=== PATIENT | female | born 1960 | race Caucasian/White ===

== ENCOUNTER 2016-07-21 09:47 | Emergency (ER) | payer BC ==
[~2016-07-21] VITALS: Ht 172.7 cm; Wt 86.2 kg
[2016-07-21 09:51] VITALS: BP 167/83
[2016-07-21] MEDS ORDERED: LIDOCAINE/EPI/TETRACAINE TOPICAL GEL 3 ML. TP ONE (10:00)
[2016-07-21] MEDS ORDERED: DIPHTH,PERTUSS(ACELL),TET TOX 0.5 ML DISP.SYRIN. VAX IM ONE (10:00)
--- NOTE | 2016-07-21 10:13 | PHYS DOC ---
Past History Past Medical History: Anxiety, Depression, Hypertension Past Surgical History: Cholecystectomy, Other Alcohol Use: Occasionally Drug Use: None Adult General Chief Complaint Chief Complaint: MECHANICAL FALL HPI HPI Patient is a 55-year-old female who presents ambulatory to the emergency department with injuries from a fall. The patient tripped over a uneven section in the sidewalk outside of her hotel this morning at about 7 AM. She landed face forward, struck her head, her glasses broke and the metal piece of her glasses caused a laceration to the left lateral eyebrow, she also has an abrasion on the left hand, both of her knees are bruised and her right knee is painful, and she has a abrasion on her right great toe. She denies loss of consciousness. After this happened, she took 2 Aleve and 2 Tylenol. She has not had a headache or nausea or vomiting. She had some coffee and a granola bar afterward. Currently her main complaint is pain is the right knee and her concern is also the laceration on the left lateral eyebrow. The patient's sister , who is a physician, cleaned and Steri-Stripped the left eyebrow and also cleaned and bandaged the left hand abrasion. Last tetanus unknown Patient denies taking blood thinners. Review of Systems Review of Systems Cardiovascular: Denies chest pain Musculoskeletal: Denies back pain or neck pain Integument: As in history of present illness Neurologic: Denies headache, focal weakness or sensory changes [] Current Medications Current Medications Current Medications Medications (Trade) Dose Ordered Sig/Josh Start Time Stop Time Status Last Admin Dose Admin Diphtheria/ Tetanus/Acell Pertussis (Boostrix) 0.5 ml ONCE ONCE 07/21/16 10:00 07/21/16 10:01 UNV Lidocaine/ Epinephrine (Let Topical) 3 ml 1X ONCE 07/21/16 10:00 07/21/16 10:01 UNV 07/21/16 10:00 3 ML Lidocaine/ Epinephrine (Xylocaine 1%-Epi 1:100,000) 20 ml 1X ONCE 07/21/16 10:00 07/21/16 10:01 UNV Allergies Allergies Allergies Coded Allergies Type Severity Reaction Last Updated Verified codeine Allergy Unknown 07/21/16 Yes Physical Exam Physical Exam Constitutional: Well developed, well nourished, no acute distress, non-toxic appearance. Alert, mentating normally, ambulatory with some difficulty with the right knee HENT: Normocephalic, bandaged laceration on the lateral aspect of the left eyebrow is currently hemostatic, bilateral external ears normal, no trauma to nose, mouth, lips, teeth Eyes: conjunctiva normal, no discharge. [] Neck: Normal range of motion, no tenderness, supple, no stridor. [] Skin: Warm, dry, no erythema, no rash. [] Back: No tenderness, Extremities: Left hand has an approximately 1 cm diameter area where the top layer of skin is avulsed, located on the ulnar aspect of the side of the hand at the base of the fifth finger. Full range of motion of the hand without significant bony tenderness, no swelling or deformity. Both knees have ecchymosis over the patella. Left knee nontender to palpation, no swelling, full range of motion. Right knee patella is tender to palpation, mild swelling that appears to be prepatellar, no joint effusion, full range of motion of the right knee, quadriceps patellar tendon is intact. Right lower leg and ankle unremarkable. Right foot has a very small superficial abrasion on the dorsal aspect of the right toe, no swelling or deformity. Neurologic: Alert and oriented X 3, normal motor function, normal sensory function, no focal deficits noted. [] Psychologic: Affect normal, judgement normal, mood normal. [] Current Patient Data Vital Signs Vital Signs Date Time Temp Pulse Resp B/P (MAP) Pulse Ox O2 Delivery O2 Flow Rate FiO2 07/21/16 09:51 98.0 70 18 100 Room Air EKG EKG [] Radiology/Procedures Radiology/Procedures Three-view x-ray of the right knee read by me. No bony abnormality. Also read by the radiologist, no abnormality. [] Procedure: Repair of left eyebrow laceration total length 1 cm LET was placed in the laceration prior to the patient going for knee x-rays, and had good blanching result prior to starting the procedure. Laceration was cleaned with Betadine and irrigated with normal saline using a splash shield. The more medial aspect of the laceration is a small partially avulsed flap of skin that is hemostatic and well adhered in good placement. It looks too thin to successfully suture. I used skin adhesive on that area. The more lateral aspect of the laceration is a small deeper laceration. It was anesthetized with lidocaine 1% with epi. It was sutured with 3 simple interrupted sutures of 5-0 nylon. Good result. Course & Med Decision Making Course & Med Decision Making Pertinent Labs and Imaging studies reviewed. (See chart for details) 55-year-old female presents to the ED after a fall about 2-1/2 hours prior to arrival, with injuries to the face, left hand, both knees, right great toe. See history and physical exam. Tetanus status was updated. The eyebrow laceration had LET placed prior to the patient going for x-rays of the right knee. Patient remained stable during the ED evaluation. Laceration was sutured. Her left hand abrasion was bandaged. She kept ice on her right knee during her ED stay. Patient is stable for discharge with her sister. Head injury return precautions were given. [] Dragon Disclaimer Dragon Disclaimer This chart was dictated in whole or in part using Voice Recognition software in a busy, high-work load, and often noisy Emergency Department environment. It may contain unintended and wholly unrecognized errors or omissions. Departure Departure: Impression: Primary Impression: Contusion of knee, left Additional Impressions: Contusion of knee, right Laceration of eyebrow, left Disposition: 01 HOME, SELF-CARE Condition: STABLE Referrals: NON,STAFF (PCP) Patient Instructions: Contusion, [id number], Head Injury, Adult, [id number] Additional Instructions: For the eyebrow laceration, sutures should be removed in 5 days. Do not apply ointment because skin adhesive was used. The skin adhesive will flake off in a few days. For the bruised knee, ice, 15-20 minutes out of every 1-2 hours or more often, baby it for a few days. You were given a tetanus shot today. Problem Qualifiers MARIA DEL CARMEN CALABRESE MD July 21, 2016 10:13
[2016-07-21] MEDS ORDERED: LIDOCAINE 1%/EPI 1:100,000 20 ML VIAL. IJ ONE (10:30)
--- NOTE | 2016-07-21 10:34 | RAD ---
Indication: Fall today with right knee pain. Technique: 3 views of the right knee are submitted for review. No comparison is available. Findings: There is no fracture or dislocation. There is no joint effusion or soft tissue swelling. Impression: Negative for fracture.
== END 2016-07-21 10:55 | disposition home or self-care (01) ==
LOC: ER 09:47
DX: S01.112A Laceration without foreign body of left eyelid and periocular area, initial encounter (principal); S80.02XA Contusion of left knee, initial encounter; S80.01XA Contusion of right knee, initial encounter; I10 Essential (primary) hypertension; Z88.6 Allergy status to analgesic agent; W18.09XA Striking against other object with subsequent fall, initial encounter; Y93.89 Activity, other specified; Y99.8 Other external cause status; Y92.480 Sidewalk as the place of occurrence of the external cause
CPT/HCPCS: 12011; 73562; 90471; 90715; 99284-25